=== PATIENT | male | born 1970 | race Caucasian/White ===

== ENCOUNTER 2021-09-15 15:34 | Outpatient (CLI) | payer MEDICARE, SELFPAY ==
[2021-09-15 16:42] LABS: Hemoglobin 14.6 g/dL (14.0-18.0)
[2021-09-15 16:45] LABS: Anion Gap 6 mmol/L (8-16); Blood Urea Nitrogen 10 mg/dL (9-20); Calcium 9.3 mg/dL (8.4-10.2); Carbon Dioxide 30 mmol/L (22-30); Chloride 98 mmol/L (98-107); Estimated Glomerular Filt Rate > 60; Glucose 115 mg/dL (65-110); Potassium 4.3 mmol/L (3.4-5.0); Sodium 134 mmol/L (137-145)
[2021-09-15 17:01] LABS: Free T4 Free Thyroxine 1.05 ng/mL (0.78-2.19)
[2021-09-20 09:52] LABS: Testosterone Free 56.4 pg/mL (46.0-224.0); Testosterone Total 555 ng/dL (250-1100)
== END 2021-09-15 15:35 | disposition home or self-care (01) ==
LOC: ANHWCLAB 15:36
PROVIDERS: Visit Provider Internal Medicine Endocrinology, Diabetes & Metabolism
DX: E23.0 Hypopituitarism (principal); E03.9 Hypothyroidism, unspecified; E27.40 Unspecified adrenocortical insufficiency
CPT/HCPCS: 36415; 80048; 84402; 84403; 84439; 85014; 85018

== ENCOUNTER 2022-03-18 09:52 | Outpatient (CLI) | payer MEDICARE, SELFPAY ==
[2022-03-18 12:00] LABS: Hemoglobin 14.1 g/dL (14.0-18.0)
[2022-03-18 12:07] LABS: Anion Gap 6 mmol/L (8-16); Blood Urea Nitrogen 13 mg/dL (9-20); Calcium 8.8 mg/dL (8.4-10.2); Carbon Dioxide 28 mmol/L (22-30); Chloride 104 mmol/L (98-107); Estimated Glomerular Filt Rate > 60; Glucose 137 mg/dL (65-110); Sodium 138 mmol/L (137-145)
[2022-03-18 12:25] LABS: Free T4 Free Thyroxine 1.06 ng/mL (0.78-2.19)
[2022-03-18 12:39] LABS: Prostate Specific Antigen 0.5 ng/mL (< OR = 4.0)
[2022-03-22 07:58] LABS: Testosterone Total 429 ng/dL (250-1100)
== END 2022-03-18 09:53 | disposition home or self-care (01) ==
LOC: ANHWCLAB 09:54
PROVIDERS: Visit Provider Internal Medicine Endocrinology, Diabetes & Metabolism
DX: E03.9 Hypothyroidism, unspecified (principal); E23.0 Hypopituitarism; E27.40 Unspecified adrenocortical insufficiency; E29.1 Testicular hypofunction; Z12.5 Encounter for screening for malignant neoplasm of prostate
CPT/HCPCS: 36415; 80048; 84153; 84402; 84403; 84439; 85014; 85018; G0103

== ENCOUNTER 2022-12-21 10:38 | Outpatient (CLI) | payer MEDICARE, SELFPAY ==
[2022-12-21 13:35] LABS: Hematocrit 44.1 % (42.0-52.0); Hemoglobin 14.4 g/dL (14.0-18.0)
[2022-12-21 13:48] LABS: Anion Gap 6 mmol/L (8-16); Blood Urea Nitrogen 12 mg/dL (9-20); Calcium 8.8 mg/dL (8.4-10.2); Carbon Dioxide 29 mmol/L (22-30); Chloride 105 mmol/L (98-107); Cholesterol 193 mg/dL (0-200); Estimated Glomerular Filt Rate > 60; Glucose 113 mg/dL (65-110); HDL Direct 71 mg/dL; Potassium 3.8 mmol/L (3.4-5.0); Sodium 140 mmol/L (137-145); Triglycerides 128 mg/dL (<150)
[2022-12-21 13:59] LABS: LDL Cholesterol Direct 85 mg/dL
[2022-12-21 14:08] LABS: Free T4 Free Thyroxine 1.06 ng/mL (0.78-2.19)
[2022-12-21 14:19] LABS: Prostate Specific Antigen 0.6 ng/mL (< OR = 4.0)
[2023-01-01 12:17] LABS: Testosterone Free 49.5 pg/mL (46.0-224.0); Testosterone Total 393 ng/dL (250-1100)
== END 2022-12-21 10:39 | disposition home or self-care (01) ==
LOC: ANHWCLAB 10:39
PROVIDERS: Visit Provider Internal Medicine Endocrinology, Diabetes & Metabolism
DX: E03.9 Hypothyroidism, unspecified (principal); E23.0 Hypopituitarism; E27.40 Unspecified adrenocortical insufficiency; Z12.5 Encounter for screening for malignant neoplasm of prostate
CPT/HCPCS: 36415; 80048; 80061; 84153; 84402; 84403; 84439; 85014; 85018; G0103

== ENCOUNTER 2023-07-06 13:39 | Outpatient (CLI) | payer MEDICARE, SELFPAY ==
[2023-07-06 17:23] LABS: Anion Gap 9 mmol/L (8-16); Blood Urea Nitrogen 14 mg/dL (9-20); Carbon Dioxide 27 mmol/L (22-30); Chloride 101 mmol/L (98-107); Estimated Glomerular Filt Rate > 60; Glucose 130 mg/dL (65-110); Potassium 4.3 mmol/L (3.4-5.0); Sodium 137 mmol/L (137-145)
[2023-07-06 17:53] LABS: Free T4 Free Thyroxine 1.07 ng/mL (0.78-2.19)
[2023-07-09 12:53] LABS: Testosterone Total 353 ng/dL (250-1100)
== END 2023-07-06 13:40 | disposition home or self-care (01) ==
LOC: ANHWCLAB 13:40
PROVIDERS: Visit Provider Internal Medicine Endocrinology, Diabetes & Metabolism
DX: E03.9 Hypothyroidism, unspecified (principal); E23.0 Hypopituitarism; E27.40 Unspecified adrenocortical insufficiency
CPT/HCPCS: 36415; 80048; 84403; 84439